=== PATIENT | male | born 1980 | race Caucasian/White ===

== ENCOUNTER 2017-12-30 12:54 | Emergency (ER) | payer BC ==
[2017-12-30] MEDS ORDERED: Acetaminophen/Codeine 30-300mg Tablet ONE ×2 (13:58→14:00)
--- NOTE | 2017-12-30 14:15 | RAD ---
RIGHT ELBOW FOUR VIEWS: History: Fall. Pain. FINDINGS: No fracture. No cortical irregularity or periosteal reaction. Joint spaces are preserved. No joint ef fusion. IMPRESSION: No post-traumatic change. POS: [facility]
--- NOTE | 2017-12-30 14:16 | RAD ---
THREE VIEWS LUMBAR SPINE: Indication: Fall off dump truck with back pain. FINDINGS: There are five lumbar type vertebrae. There are small ribs at T12. Vertebral body height and spinal a lignment is preserved. Alignment is normal. IMPRESSION: Radiographically normal lumbar spine. POS: [facility]
--- NOTE | 2017-12-30 14:18 | RAD ---
FOUR VIEWS RIGHT KNEE: Indication: Fall off dump trunk with right knee pain. Comparison: None. FINDINGS: No acute fracture or subluxation is evident. There is mild joint capsular distention. No radiopaque f oreign body is evident. IMPRESSION: No acute osseous abnormality. Mild joint capsular distention. POS: [facility]
--- NOTE | 2017-12-30 14:19 | RAD ---
THREE VIEWS RIGHT WRIST: Indication: Fall off dump truck with right wrist pain. Comparison: None. FINDINGS: No acute fracture or subluxation is evident. Carpal alignment is preserved. IMPRESSION: No acute osseous abnormality. POS: [facility]
== END 2017-12-30 14:21 | disposition home or self-care (01) ==
LOC: ERS 12:54
DX: S39.012A Strain of muscle, fascia and tendon of lower back, initial encounter (principal); S40.021A Contusion of right upper arm, initial encounter; S80.11XA Contusion of right lower leg, initial encounter; K21.9 Gastro-esophageal reflux disease without esophagitis; F41.9 Anxiety disorder, unspecified; F32.9 Major depressive disorder, single episode, unspecified; Z79.899 Other long term (current) drug therapy; W17.89XA Other fall from one level to another, initial encounter
CPT/HCPCS: 72100

== ENCOUNTER 2020-11-05 05:49 | Observation (INO) | payer BC, OTHER, SELFPAY ==
[2020-11-05 06:04] LABS: #Eosinphils 0.1 thou/uL (0.0-0.7); #Lymphocytes 0.8 thou/uL (1.20-3.40); #Monocytes 0.6 thou/uL (0.11-0.59); #Neutrophils 15.1 thou/uL (1.40-6.50); %Eosinophils 0.5 % (0.0-10.0); %Lymphocytes 4.9 % (21.0-51.0); %Monocytes 3.4 % (0.0-10.0); %Neutrophils 91.3 % (42.0-75.0); Hemoglobin 14.9 g/dL (14.0-18.0); Mean Corpuscular HGB CONC 34.3 g/dL (32.0-36.0); Mean Corpuscular Hemoglobin 31.7 pg (27.0-31.0); Mean Corpuscular Volume 92.4 fL (78.0-98.0); Mean Platelet Volume 6.7 fL (7.4-10.4); Platelet Count 309 thou/uL (130-400); RBC Distribution Width 10.9 % (11.5-14.5); Red Blood Cell (RBC) Count 4.71 mill/uL (4.70-6.10); White Blood Cell (WBC) Count 16.5 thou/uL (4.8-10.8)
[2020-11-05] MEDS ORDERED: Ondansetron PF 4 MG/2 ML Vial ONE ×2 (06:17→08:04)
[2020-11-05] MEDS ORDERED: Haloperidol Lactate 5 MG/ML VIAL ONE ×2 (06:22→07:37)
[2020-11-05 06:30] LABS: ALT (SGPT) 48 U/L (8-55); AST (SGOT) 26 U/L (5-34); Albumin 5.1 g/dL (3.5-5.0); Alkaline Phosphatase 93 U/L (40-110); Anion Gap 18 mmol/L (10-20); BUN (Urea Nitrogen) 18 mg/dL (8.9-20.6); Bilirubin, Total 0.8 mg/dL (0.2-1.2); Calc. Creatinine Clearance 0 mL/min (70-130); Calcium 10.6 mg/dL (7.8-10.44); Carbon Dioxide 24 mmol/L (22-29); Chloride 99 mmol/L (98-107); Globulin 4.1 g/dL (2.4-3.5); Glucose 161 mg/dL (70-105); Lipase 22 U/L (8-78); Potassium 4.2 mmol/L (3.5-5.1); Protein, Total 9.2 g/dL (6.0-8.3); Sodium 137 mmol/L (136-145)
[2020-11-05] MEDS ORDERED: Pantoprazole 40 MG VIAL ONE (07:37)
[2020-11-05] MEDS ORDERED: Lactated Ringer's 1,000 ML IV SCH (08:00)
[2020-11-05] MEDS ORDERED: Pantoprazole 40 MG VIAL IVP SCH (08:00)
[2020-11-05] MEDS ORDERED: Ondansetron PF 4 MG/2 ML Vial IVP SCH (08:00)
[2020-11-05] MEDS ORDERED: Iopamidol-370 76% 500 ML 1 ML ONE (08:55)
[2020-11-05] MEDS ORDERED: Acetaminophen 650 MG Suppository PR PRN (09:27)
[2020-11-05] MEDS ORDERED: Ondansetron PF 4 MG/2 ML Vial IVP PRN (09:27)
[2020-11-05] MEDS ORDERED: Sodium Chloride 0.9% (PF) 10 ML VIAL FS PRN (09:45)
[2020-11-05] MEDS: Lactated Ringer's 1,000 ML IV SCH ×3 (09:54→22:47)
[2020-11-05 10:26] VITALS: BMI 29.8
[2020-11-05 10:40] LABS: Troponin I Less than 0.010 ng/mL (< 0.028)
[2020-11-05 13:23] LABS: Troponin I Less than 0.010 ng/mL (< 0.028)
[2020-11-05 17:02] LABS: SARS-CoV-2 PCR by NAA Not Detected (NotDetected)
[2020-11-05] MEDS: Acetaminophen 325 MG TAB PO PRN (18:19)
[2020-11-05] MEDS ORDERED: FLUoxetine HCl 20 MG CAP PO SCH (19:00)
[2020-11-05] MEDS: Pantoprazole 40 MG VIAL IVP SCH (21:26)
[2020-11-06 04:32] LABS: #Monocytes 0.6 thou/uL (0.11-0.59); #Neutrophils 5.4 thou/uL (1.40-6.50); %Basophils 0.3 % (0.0-1.0); %Eosinophils 0.3 % (0.0-10.0); %Lymphocytes 14.1 % (21.0-51.0); %Monocytes 8.5 % (0.0-10.0); %Neutrophils 76.7 % (42.0-75.0); Mean Corpuscular HGB CONC 34.7 g/dL (32.0-36.0); Mean Corpuscular Hemoglobin 32.3 pg (27.0-31.0); Mean Platelet Volume 6.9 fL (7.4-10.4); Platelet Count 233 thou/uL (130-400); Red Blood Cell (RBC) Count 4.02 mill/uL (4.70-6.10)
[2020-11-06 04:46] LABS: Hemoglobin A1c 5.3 % (4.0-6.0)
[2020-11-06] MEDS: Acetaminophen 325 MG TAB PO PRN (04:49)
[2020-11-06 05:02] LABS: Anion Gap 12 mmol/L (10-20); BUN (Urea Nitrogen) 13 mg/dL (8.9-20.6); Calc. Creatinine Clearance 145 mL/min (70-130); Calcium 8.7 mg/dL (7.8-10.44); Carbon Dioxide 26 mmol/L (22-29); Cardiac Risk 3.5 (Less than 4.5); Chloride 101 mmol/L (98-107); Cholesterol 203 mg/dl (< 200 Desired); Glucose 118 mg/dL (70-105); HDL Cholesterol 58 mg/dL (>60 Neg Risk); LDL Cholesterol, Calculated 121 mg/dL; Potassium 3.4 mmol/L (3.5-5.1); Sodium 136 mmol/L (136-145); Triglycerides 119 mg/dL (Less than 150)
[2020-11-06 08:00] VITALS: BP 116/75; TEMP 97.6
[2020-11-06] MEDS: Lactated Ringer's 1,000 ML IV SCH (08:01)
[2020-11-06] MEDS: Pantoprazole 40 MG VIAL IVP SCH (08:01)
[2020-11-06] MEDS ORDERED: FLUoxetine HCl 20 MG CAP PO SCH (09:00)
== END 2020-11-06 12:27 | disposition home or self-care (01) ==
LOC: ERS 05:49 → 2NO 07:32
PROVIDERS: ADMIT Student in an Organized Health Care Education/Training Program; ATTEND Family Medicine
DX: R11.2 Nausea with vomiting, unspecified (principal); R07.89 Other chest pain; K92.1 Melena; R19.7 Diarrhea, unspecified; F10.10 Alcohol abuse, uncomplicated; K21.9 Gastro-esophageal reflux disease without esophagitis; G89.29 Other chronic pain; M54.9 Dorsalgia, unspecified; E86.1 Hypovolemia; R10.30 Lower abdominal pain, unspecified; Z80.0 Family history of malignant neoplasm of digestive organs; Z79.899 Other long term (current) drug therapy; Z20.822 Contact with and (suspected) exposure to COVID-19
CPT/HCPCS: 36415; 71045; 74177; 80048; 80053; 80061; 82270; 83036; 83690; 84443; 84484; 85025; 86850; 86900; 86901; 87635; 93005; 93010; 96374; 96375; 96376; C9113; G0378; J1630; J2405; Q9967; U0003; U0005

== ENCOUNTER 2024-02-02 08:35 | Day surgery (SDC) | payer SELFPAY ==
[2024-01-30 11:08] VITALS: BMI 30.8
[~2024-02-02 08:35] MED LIST: Midazolam HCl 2 mg/2 ml Vial ONE; PROPOFOL 20 ML ONE; PROPOFOL 200 MG/20 ML VIAL ONE; fentaNYL PF 100 MCG/2 ML SYRINGE ONE
== END 2024-02-02 09:35 | disposition home or self-care (01) ==
LOC: SDC 08:35
PROVIDERS: ATTEND Internal Medicine
PROC: 0DB68ZX Excision of Stomach, Via Natural or Artificial Opening Endoscopic, Diagnostic (ICD-10-PCS; principal; 2024-02-02)
PROC: 0DBL8ZZ Excision of Transverse Colon, Via Natural or Artificial Opening Endoscopic (ICD-10-PCS; principal; 2024-02-02)
DX: D12.3 Benign neoplasm of transverse colon (principal); K57.30 Diverticulosis of large intestine without perforation or abscess without bleeding; K29.50 Unspecified chronic gastritis without bleeding; K31.7 Polyp of stomach and duodenum; K64.8 Other hemorrhoids; K64.4 Residual hemorrhoidal skin tags; K21.9 Gastro-esophageal reflux disease without esophagitis; K59.00 Constipation, unspecified; K92.1 Melena; K85.90 Acute pancreatitis without necrosis or infection, unspecified; F10.10 Alcohol abuse, uncomplicated; Z80.0 Family history of malignant neoplasm of digestive organs; F32.A Depression, unspecified; Z79.899 Other long term (current) drug therapy
CPT/HCPCS: 88305; J2250; J2704